=== PATIENT | female | born 1965 | race African-American/Black ===

== ENCOUNTER 2016-10-04 10:52 | Emergency (ER) | payer BC ==
[~2016-10-04] VITALS: Ht 160 cm; Wt 135.6 kg
[~2016-10-04 10:52] MED LIST: HYDR-971 PO; NAPR550T PO
[2016-10-04] MEDS ORDERED: IBUPROFEN 400 MG TABLET. PO ONE (12:45)
[2016-10-04 13:03] LABS: BILIRUBIN,URINE NEGATIVE (NEG); GLUCOSE,URINE NEGATIVE (NEG); NITRITE,URINE NEGATIVE (NEG); PH,URINE 5.5; PROTEIN,URINE NEGATIVE (NEG-TRACE); UROBILINOGEN,URINE 0.2 mg/dL (0.2 mg/dL)
[2016-10-04 13:41] LABS: RBC,URINE 20-40 /HPF (0-2); WBC,URINE 0 /HPF (0-4)
[2016-10-04 13:42] LABS: BACTERIA,URINE FEW /HPF (0-FEW); SQUAMOUS EPITHELIAL CELL,UR MOD /LPF; YEAST,URINE PRESENT /HPF
[2016-10-04 15:00] VITALS: BP 140/69
[2016-10-04] MEDS ORDERED: FLUC150T PO (15:20)
--- NOTE | 2016-10-04 15:20 | PHYS DOC ---
Past Medical History Past Medical History: No Pertinent History Past Surgical History: Hysterectomy Alcohol Use: None Drug Use: None Adult General Chief Complaint Chief Complaint: ABDOMINAL PAIN HPI HPI Patient is a 50 year old female who presents for evaluation of vaginal burning with urination and blood with wiping for the past few days. She also notes yesterday having constipation and associated right lower quadrant pain and nausea. She took a laxative with resolution of the symptoms. She denies current abdominal pain or nausea. She denies diarrhea, fever or chills, vomiting, vaginal bleeding or discharge. Review of Systems Review of Systems Constitutional: Denies fever or chills [] Eyes: Denies change in visual acuity, redness, or eye pain [] HENT: Denies nasal congestion or sore throat [] Respiratory: Denies cough or shortness of breath [] Cardiovascular: No additional information not addressed in HPI [] GI: Denies abdominal pain, nausea, vomiting, bloody stools or diarrhea [] : Has dysuria and hematuria [] Musculoskeletal: Denies back pain or joint pain [] Integument: Denies rash or skin lesions [] Neurologic: Denies headache, focal weakness or sensory changes [] Endocrine: Denies polyuria or polydipsia [] Current Medications Current Medications Current Medications Medications (Trade) Dose Ordered Sig/Juliana Start Time Stop Time Status Last Admin Dose Admin Ibuprofen (Motrin) 400 mg 1X ONCE 10/04/16 12:45 10/04/16 12:46 DC 10/04/16 13:03 400 MG Allergies Allergies Allergies Coded Allergies Type Severity Reaction Last Updated Verified No Known Drug Allergies 04/03/14 No Physical Exam Physical Exam Constitutional: Well developed, well nourished, no acute distress, non-toxic appearance. [] HENT: Normocephalic, atraumatic, bilateral external ears normal, oropharynx moist, nose normal. [] Eyes: PERRLA, EOMI. [] Neck: Normal range of motion, supple. [] Cardiovascular:Heart rate regular rhythm [] Lungs & Thorax: Bilateral breath sounds clear to auscultation [] Abdomen: Bowel sounds normal, soft, no tenderness. [] Skin: Warm, dry, no erythema, no rash. [] Back: No tenderness, no CVA tenderness. [] Extremities: ROM intact, no edema. [] Neurologic: Alert and oriented X 3, normal motor function, normal sensory function, no focal deficits noted. [] Psychologic: Affect normal, judgement normal, mood normal. [] Current Patient Data Vital Signs Vital Signs Date Time Temp Pulse Resp B/P Pulse Ox O2 Delivery O2 Flow Rate FiO2 10/04/16 15:00 56 20 140/69 98 10/04/16 13:04 Room Air 10/04/16 11:31 95.7 95.7 Lab Values Laboratory Tests Test 10/04/16 12:40 Urine Collection Type Unknown Urine Color Yellow Urine Clarity Turbid Urine pH 5.5 Urine Specific [place] 1.025 Urine Protein Negativemg/dL (NEG-TRACE) Urine Glucose (UA) Negativemg/dL (NEG) Urine Ketones (Stick) Negativemg/dL (NEG) Urine Blood Large (NEG) Urine Nitrite Negative (NEG) Urine Bilirubin Negative (NEG) Urine Urobilinogen Dipstick 0.2mg/dL (0.2 mg/dL) Urine Leukocyte Esterase Negative (NEG) Urine RBC 20-40/HPF (0-2) Urine WBC 0/HPF (0-4) Urine Squamous Epithelial Cells Mod/LPF Urine Bacteria Few/HPF (0-FEW) Urine Yeast Present/HPF Course & Med Decision Making Course & Med Decision Making Pertinent Labs and Imaging studies reviewed. (See chart for details) Has some hematuria and candidiasis. Will treat for vulvovaginal candidiasis. She declined pelvic exam. Encouraged her to follow-up with her primary care doctor or supervising architect. Return precautions given. She understands and agrees with plan. Dragon Disclaimer Dragon Disclaimer This electronic medical record was generated, in whole or in part, using a voice recognition dictation system. Departure Departure Impression: Primary Impression: Vaginal candidiasis Referrals: MICHELLE MOTT MD (PCP) Patient Instructions: Candidal Vulvovaginitis, [id number] Additional Instructions: Take Diflucan for yeast infection. Take second dose in 3 days if your symptoms have not resolved. Follow-up with your primary care doctor and supervising architect. Return for any concerns. Scripts Fluconazole (Diflucan)150 Mg Tablet1 Tab PO ONCE #1 TAB Ref 1 Prov:Alfred ONEAL MD 10/04/16 Alfred ONEAL MD Oct 04, 2016 15:20
== END 2016-10-04 15:26 | disposition home or self-care (01) ==
LOC: ER 10:52
DX: B37.3 Candidiasis of vulva and vagina (principal); K59.00 Constipation, unspecified; Z90.710 Acquired absence of both cervix and uterus
CPT/HCPCS: 81001; 99283

== ENCOUNTER 2017-03-21 08:31 | Emergency (ER) | payer BC ==
[~2017-03-21] VITALS: Ht 162.6 cm; Wt 137.9 kg
[~2017-03-21 08:31] MED LIST changes: +FLUC150T PO
[2017-03-21 08:40] VITALS: BP 150/74
--- NOTE | 2017-03-21 09:08 | PHYS DOC ---
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 Patient states she has been taking Aleve that does help. However the last 2-3 days she has had increase pain with the right leg feeling heavy. patient states at this time Aleve is not helping with the pain. Patient states she has a family hx of DVT and she is concerned that she may have a DVT since she sits all day. Patient denies SOA, leg swelling or discoloration, denies chest pain. Review of Systems Review of Systems Constitutional: Denies fever or chills [] Eyes: Denies change in visual acuity, redness, or eye pain [] HENT: Denies nasal congestion or sore throat [] Respiratory: Denies cough or shortness of breath [] Cardiovascular: No additional information not addressed in HPI [] GI: Denies abdominal pain, nausea, vomiting, bloody stools or diarrhea [] : Denies dysuria or hematuria [] Musculoskeletal: Denies back pain. C/o right leg pain Integument: Denies rash or skin lesions [] Neurologic: Denies headache, focal weakness or sensory changes [] Endocrine: Denies polyuria or polydipsia [] Current Medications Current Medications Current Medications Medications (Trade) Dose Ordered Sig/Juliana Start Time Stop Time Status Last Admin Dose Admin Ibuprofen (Motrin) 800 mg 1X ONCE 03/21/17 10:00 03/21/17 10:01 03/21/17 09:35 800 MG Prednisone (Prednisone) 40 mg 1X ONCE 03/21/17 10:00 03/21/17 10:01 03/21/17 09:35 40 MG Allergies Allergies Allergies Coded Allergies Type Severity Reaction Last Updated Verified No Known Drug Allergies 04/03/14 No Physical Exam Physical Exam Constitutional: Well developed, well nourished, no acute distress, non-toxic appearance. [] HENT: Normocephalic, atraumatic, bilateral external ears normal, oropharynx moist, no oral exudates, nose normal. [] Eyes: PERRLA, EOMI, conjunctiva normal, no discharge. [] Neck: Normal range of motion, no tenderness, supple, no stridor. [] Cardiovascular:Heart rate regular rhythm, no murmur [] Lungs & Thorax: Bilateral breath sounds clear to auscultation [] Abdomen: Bowel sounds normal, soft, no tenderness, no masses, no pulsatile masses. [] Skin: Warm, dry, no erythema, no rash. [] Back: tenderness noted over the right lower back at the sciatica area causing the same pain and discomfort, no CVA tenderness. [] Extremities: No tenderness, no cyanosis, no clubbing, ROM intact, no edema. Peripheral pulses 2+ cap refill brisk < 2 seconds. Patient with good sensation noted to the foot. Neurologic: Alert and oriented X 3, normal motor function, normal sensory function, no focal deficits noted. [] Psychologic: Affect normal, judgement normal, mood normal. [] Current Patient Data Vital Signs Vital Signs Date Time Temp Pulse Resp B/P (MAP) Pulse Ox O2 Delivery O2 Flow Rate FiO2 03/21/17 08:40 98.2 76 16 98 Room Air 98.2 EKG EKG [] Radiology/Procedures Radiology/Procedures [][facility] [address] [place] [address] IMAGING REPORT Signed PATIENT: KESHAWN TAVARES ACCOUNT: [id number] : 1965 LOCATION: ER AGE: 51 SEX: F EXAM STATUS: REG ER ORD. PHYSICIAN: LAVELL JHA [employer] REASON: PAIN RIGHT LEG PT CONCERN FOR dvt, HX PROLONG SITTING PROCEDURE: VENOUS LOWER EXTREMITY RIGHT Right lower extremity venous ultrasound, 03/21/2017 : History: Right leg pain, prolonged sitting Duplex evaluation including grayscale, color flow and spectral Doppler analysis was performed. The femoral and popliteal veins show no filling defects to suggest DVT. The visualized deep veins in the right calf are unremarkable. There is a elongated fluid collection the right popliteal fossa compatible with a Bean's cyst. It measures approximately 1 x 3 x 2 cm. IMPRESSION: 1. There is no sonographic evidence of deep vein thrombosis in the right lower extremity. 2. Small right popliteal cyst. DICTATED and SIGNED BY: DUSTIN TRIPP MD DATE: 03/21/17 0938 CC: LAVELL JHA APRN; MICHELLE MOTT MD ~ Course & Med Decision Making Course & Med Decision Making Pertinent Labs and Imaging studies reviewed. (See chart for details) Patient was provided with ultrasound report. As noted DVTs noted patient does have a cyst noted on the right knee. Patient will be discharged home in stable condition. She will be provided with orthopedic name and number to follow up with if they have any increased pain. Patient will be provided with steroids in which she can take to help with back pain as well as Flexeril. She was instructed Flexeril will cause drowsiness do not take any be alert and oriented. Patient be discharged home in stable condition. Also recommended ice packs on 20 minutes off 20 minutes several times a day. Patient agrees with discharge instructions treatment regimens and follow-up recommendations. [] Dragon Disclaimer Dragon Disclaimer This electronic medical record was generated, in whole or in part, using a voice recognition dictation system. Departure Departure Impression: Primary Impression: Unruptured synovial cyst of right popliteal space Additional Impression: Back pain with sciatica Disposition: 01 HOME, SELF-CARE Condition: STABLE Referrals: MICHELLE MOTT MD (PCP) Patient Instructions: Knee Pain, [id number], Sciatica, [id number] Additional Instructions: Activity as tolerated. Ibuprofen 800 mg every 8 hours with food stop taking few develop an upset stomach. Flexeril will help with muscle spasms. This medication will cause drowsiness do not take any be alert and oriented. Medication as prescribed. You may try an Erasmo wrap to the right knee to help with pain and discomfort. Follow-up with your primary care physician in the next 5-7 days. Follow-up with orthopedic as needed. Return back to sign symptoms become worse. Scripts Cyclobenzaprine Hcl (CYCLOBENZAPRINE HCL) 10 Mg Tablet 10 MG PO TID, #30 TAB Prov: LAVELL JHA APRN 03/21/17 Prednisone (PREDNISONE) 20 Mg Tablet 40 MG PO DAILY, #14 TAB Prov: LAVELL JHA APRN 03/21/17 Problem Qualifiers LAVELL JHA APRN Mar 21, 2017 09:08
--- NOTE | 2017-03-21 09:42 | RAD ---
Right lower extremity venous ultrasound, 03/21/2017 : History: Right leg pain, prolonged sitting Duplex evaluation including grayscale, color flow and spectral Doppler analysis was performed. The femoral and popliteal veins show no filling defects to suggest DVT. The visualized deep veins in the right calf are unremarkable. There is a elongated fluid collection the right popliteal fossa compatible with a Bean's cyst. It measures approximately 1 x 3 x 2 cm. IMPRESSION: 1. There is no sonographic evidence of deep vein thrombosis in the right lower extremity. 2. Small right popliteal cyst.
[2017-03-21] MEDS ORDERED: predniSONE 20 MG TABLET PO ONE (10:00)
[2017-03-21] MEDS ORDERED: IBUPROFEN 800 MG TABLET. PO ONE (10:00)
[2017-03-21] MEDS ORDERED: CYCL10TA2 PO (10:11)
[2017-03-21] MEDS ORDERED: PRED20TA PO (10:11)
== END 2017-03-21 10:38 | disposition home or self-care (01) ==
LOC: ER 08:31
DX: M71.21 Synovial cyst of popliteal space [Baker], right knee (principal); M54.41 Lumbago with sciatica, right side; Z90.710 Acquired absence of both cervix and uterus
CPT/HCPCS: 93971; 99284; J7512